=== PATIENT | female | born 1980 | race Caucasian/White ===

== ENCOUNTER 2020-08-24 14:20 | Outpatient (CLI) | payer OTHER ==
[~2020-08-24 14:20] MED LIST: WELLBUTRIN75 MG
== END 2020-08-24 14:22 | disposition home or self-care (01) ==
LOC: RAD 14:20
PROVIDERS: ATTEND Orthopaedic Surgery Hand Surgery
DX: M79.642 Pain in left hand (principal)

== ENCOUNTER 2020-08-29 06:26 | Day surgery (SDC) | payer OTHER | END 2020-08-29 17:35 | disposition home or self-care (01) | LOC: CIR.AMB 06:26 | PROVIDERS: ATTEND Orthopaedic Surgery Hand Surgery | DX: S62.631 Displaced fracture of distal phalanx of left index finger (principal); Z20.822 Contact with and (suspected) exposure to COVID-19 ==